=== PATIENT | male | born 1990 | race Caucasian/White ===

== ENCOUNTER 2017-03-06 18:15 | Emergency (ER) | payer OTHER ==
[~2017-03-06] VITALS: Ht 170.2 cm; Wt 79.5 kg
[~2017-03-06 18:15] MED LIST: HYDR1TAB90 PO; POLY10DR21 OP; [UNRECOGNIZED DRUG - CODE] PO
[2017-03-06 18:18] VITALS: BP 127/79; PULSE 45; RESP 16; O2SAT 99
[2017-03-06 18:45] LABS: BASOPHILS % (AUTO) 0.4 % (0-3); EOSINOPHILS % (AUTO) 1.8 % (0-5); MONOCYTES % (AUTO) 7.8 % (4-12); Mean Corpuscular Hemoglobin 29.8 pg (27.0-35.0); Mean Corpuscular Volume 86.3 fL (81-100); NEUTROPHILS % (AUTO) 62.9 % (40-74); Platelet Count 265 bil/L (150-400)
[2017-03-06 19:04] LABS: TROPONIN T < 0.010 ug/L (0.0-0.011)
[2017-03-06 19:13] LABS: Magnesium 2.1 mg/dL (1.6-2.6)
--- NOTE | 2017-03-06 19:22 | DRSVH ---
PROCEDURE: X-RAY CHEST, TWO VIEWS ([id number]) INDICATIONS: CHEST PAIN, SYNCOPE TECHNIQUE: 2 views of the chest were acquired. COMPARISON: None. FINDINGS: Surgical changes and devices: None. Lungs and pleura: No pleural effusions or pneumothorax. Lungs are clear. Mediastinum: Mediastinal contours are normal. Heart size is normal. Bones and chest wall: No suspicious bony abnormalities. Soft tissues appear unremarkable. IMPRESSION: Source of intermittent chest pain is not seen. Dictated by: Kevin Davis M.D. on 03/06/2017 at 19:20 Approved by: Kevin Davis M.D. on 03/06/2017 at 19:20
--- NOTE | 2017-03-06 20:05 | ED.REPORT ---
HPI-General Illness Date of Service Mar 06, 2017 ED Provider: Venkat Adams MD Patient is a 26 year old male with a history of myocarditis (3 years ago) who presents to ED after having a syncopal episode at 1000 this morning. The patient states that while his was having her ultrasound, he began feeling nauseated, got lightheaded, tried to stand up and then passed out. Per the patient's , the patient was only out for a second and when he woke up he was given apple juice and saltines. The patient's denies any seizure activity or shaking. He denies incontinence or other symptoms at this time. 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 Patient has also had a syncopal episode in high school after watching a video with blood in it. Nursing Notes Stated Complaint: DIZZY,LOW HEART RATE Chief Complaint: Dysrhythmia/Cardiac Nursing Notes Reviewed: Yes Allergies: Coded Allergies: No Known Allergies (Verified Allergy, Unknown, 03/06/17) Scheduled Cephalexin-Expunged Drug, Do Not Renew! (Keflex-Expunged Drug, Do Not Renew!) 500 Mg Capsule 500 MG PO BID Hydrocodone Bit/Acetaminophen (Anexsia 5/325 Mg Tablet) 1 Tab Tablet 1-2 TAB PO PRN Polymyxin B Sulfate/Tmp (Polymyxin B/Tmp Eye Drops) 10 Ml Drops 1 DROP OP Q3 both eyes General Time Seen by MD: 19:56 Chief Complaint Other (syncope) Hx Obtained From: Patient, Other family... (Mother) Arrived By: Walk-in Sudden in Onset?: Yes Onset Occurred: 5 - 8 hours ago Severity: Current: No pain currently Similar Sx Previous: Yes Past Medical History Past Medical History myocarditis Smoking History Unknown if Ever Smoker Social History Other Social History: Good social support Ambulatory Status Independent Review of Systems Full Review of Systems GI: Reports: Nausea Male: Denies Incontinence Neurologic: Reports: Change LOC, Lightheaded, Syncope, Denies: Seizure, Shaking Complete sys rev & neg: except as marked. Physical Exam Vital Signs Vital Signs Date Time Temp Pulse Resp B/P Pulse Ox O2 Delivery O2 Flow Rate FiO2 03/06/17 21:35 55 16 112/57 97 Room Air 03/06/17 20:08 46 12 131/81 98 Room Air 03/06/17 18:18 36.6 45 16 127/79 99 Room Air Initial VS: Reviewed General/Constitutional: Awake, Alert, No acute distress Head / Eyes: Atraumatic, Normocephalic, PERRL, EOMI no scalp tenderness ENT: Atraumatic, Airway patent, Mucous membranes moist Respiratory / Chest: Atraumatic, Breath sounds NL, Breath sounds = bilat, No respiratory distress Cardiovascular: Regular rhythm, Heart sounds NL, No gallop, No murmurs, No rubs Heart Rate / Rhythm: Positive: Bradycardia Abdomen: Atraumatic, Soft, Non-tender, No distention Lower Extremity / Pelvis / MS: Atraumatic, No swelling, Non-tender good distal pulses Skin: Atraumatic, Color NL, No rash, Warm, Dry Neurologic: Oriented X3, Speech NL no pronate or dift no lateralizing neuro findings Interpretation & Diagnostics Lab Results Interpretation Result Diagram: 03/06/17 1838 03/06/17 1838 Test 03/06/17 18:38 White Blood Count 7.9th/mm3 (3.8-10.1) Red Blood Count 5.34mil/mm3 (4.40-5.80) Hemoglobin 15.9g/dL (13.8-17.2) Hematocrit 46.1% (41.0-50.0) Mean Corpuscular Volume 86.3fL (81-100) Mean Corpuscular Hemoglobin 29.8pg (27.0-35.0) Mean Corpuscular Hemoglobin Concent 34.5% (32.0-37.0) Red Cell Distribution Width 12.8% (12.3-15.4) Platelet Count 265bil/L (150-400) Neutrophils (%) (Auto) 62.9% (40-74) Lymphocytes (%) (Auto) 27.0% (14-46) Monocytes (%) (Auto) 7.8% (4-12) Eosinophils (%) (Auto) 1.8% (0-5) Basophils (%) (Auto) 0.4% (0-3) Sodium Level 141mEq/L (134-144) Potassium Level 4.2mEq/L (3.5-5.2) Chloride Level 103mEq/L (97-108) Carbon Dioxide Level 26mmol/L (18-29) Blood Urea Nitrogen 10mg/dL (6-20) Creatinine 0.87mg/dL (0.76-1.27) Estimat Glomerular Filtration Rate 111mL/min (>59) Glucose Level 93mg/dL (60-99) Calcium Level 9.6mg/dL (8.5-10.1) Magnesium Level 2.1mg/dL (1.6-2.6) Total Bilirubin 0.9mg/dL (0.0-1.2) Aspartate Amino Transf (AST/SGOT) 22U/L (0-50) Alanine Aminotransferase (ALT/SGPT) 24U/L (0-44) Alkaline Phosphatase 78U/L (25-150) Troponin T < 0.010ug/L (0.0-0.011) Total Protein 7.6g/dL (6.4-8.4) Albumin 4.7g/dL (3.4-5.0) Hold Britton Top Tube Received (Received) ECG Interpretation ECG Interpretation: sinus bradycardia, 46bpm Interpreted by: ED physician X-Ray Chest Interpretation Chest Xray Interpretation: IMPRESSION: Source of intermittent chest pain is not seen. Dictated by: Kevin Davis M.D. on 03/06/2017 at 19:20 Approved by: Kevin Davis M.D. on 03/06/2017 at 19:20 Interpretation / Wet Read by: Interpret - Radiologist Re-Eval/Medical Decision Med Decision/Clinical Course Patient is a 26 year old male with a history of myocarditis (3 years ago) who presents to ED after having a syncopal episode at 1000 this morning. The patient states that while his was having her ultrasound, he began feeling nauseated, got lightheaded, tried to stand up and then passed out. Per the patient's , the patient was only out for a second and when he woke up he was given apple juice and saltines. The patient's denies any seizure activity or shaking. He denies incontinence or other symptoms at this time. 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 Patient has also had a syncopal episode in high school after watching a video with blood in it. Here in the emergency department the patient is noted to be in sinus bradycardia on the monitor though otherwise healthy stable and afebrile with good pulse oximetry reading. EKG: sinus bradycardia, 46bpm, early repolarization noted in the anteroseptal leads no acute T wave abnormalities, no delta waves, no signs of conduction abnormalities, no ST segment elevation Labs: CBC unremarkable, CMP unremarkable, negative trop Chest X-ray impression: Source of intermittent chest pain is not seen. Reviewed echocardiogram report from 10/01/13, which is noted that the patient was in sinus bradycardia with an ejection fracture estimated between 60-65%. Cardiomyopathy was no longer seen when compared to echocardiogram from 07/03/13. Patient presents with a syncopal episode highly suggestive of vasovagal event. The presentation is not seizure-like in nature. He is bradycardic though in reviewing his chart this is his baseline. He is in a sinus rhythm. He was maintained on cardiac monitoring and demonstrated no evidence of arrhythmia. There are no signs of conduction abnormality on reviewing his EKG. His remote episode of myocarditis was not viral in nature and he presents with no signs or symptoms suggestive of recurrent myocarditis. He is afebrile. He states that none of the symptoms he has recently experienced similar to his previous episode of myocarditis. Given his history of myocarditis I discussed the patient with cardiology who reviewed his chart. They did not feel that he requires further workup at this time. He is noted to be bradycardic though this is also his baseline and given that he is young, healthy and athletic I do not suspect that this was the primary etiology of his syncope today. I discussed this in depth with the patient and his family and they do not desire to be admitted to the hospital or undergo further workup. He reports feeling reassured. He will follow up closely with his primary care physician. All questions have been answered. Prior to discharge follow-up and return precautions were reviewed in detail with the patient who verbalized understanding and agreement with the plan. The patient was discharged in stable condition. Time of Eval: 21:00 Re-Evaluation/Progress Note: Discussed results and plan for discharge. Patient understands and agrees to plan. All questions were addressed. Consultation : Consulted With: Cardiology Call Returned at: 20:55 Principal Software Architect: Agrees with eval, Agrees with plan Note: Consult with cardiology who recommends patient follow up outpatient with his primary care physician Counseled Regarding: Diagnosis, Lab results, Need for follow-up, When/why to return to ED Discharge & Departure Primary Impression: Syncope Syncope type: vasovagal syncope Qualified Code: R55 - Syncope and collapse Additional Impressions: Bradycardia History of myocarditis Disposition: Home Discharge Condition All VS Reviewed: Yes Condition: Stable Patient Instructions: Syncope (ED) Additional Instructions: Thank you for seeking care at the emergency room. It is difficult for us to make definitive diagnoses in the ED but we believe that you experienced a vaso vagual syncopal episode, which is a common occurrence. Our primary goal today in the Emergency Department was to evaluate you for any life-threatening conditions. Your evaluation was reassuring. You should follow-up with your primary doctor in the next week. You should return to the Emergency Department immediately if you develop lightheadedness with exertion, chest pain, racing heart, recurrent episodes of passing out, fever or any other concerning signs or symptoms. Thank you for letting us partake in your care today. Referrals: NOPCP (PCP) Ruslan Attestation Portions of this note were transcribed by Niyah Goodson. I, Dr. Adams personally performed the history, physical exam and medical decision-making; I reviewed and confirmed the accuracy of the information in the transcribed note. Signed by: Ruslan Warren, 03/06/17 Venkat Adams MD Mar 06, 2017 20:05 Lilly Goodson Mar 06, 2017 20:20
[2017-03-06 20:08] VITALS: BP 131/81; PULSE 46; RESP 12; O2SAT 98
[2017-03-06 21:35] VITALS: BP 112/57; PULSE 55; RESP 16; O2SAT 97
== END 2017-03-06 21:37 | disposition home or self-care (01) ==
LOC: SED 18:15
DX: R55 Syncope and collapse (principal); R00.1 Bradycardia, unspecified; R11.0 Nausea; R42 Dizziness and giddiness; Z86.79 Personal history of other diseases of the circulatory system